=== PATIENT | male | born 1970 | race Caucasian/White ===

== ENCOUNTER 2016-10-10 09:06 | Emergency (ER) | payer OTHER ==
[~2016-10-10] VITALS: Ht 162.6 cm; Wt 85.2 kg
[2016-10-10] MEDS ORDERED: ASPIRIN 81 MG CHEW TABLET PO ONE (09:45)
[2016-10-10 10:01] LABS: BASO % 0.6 % (0.0-1.0); EOS # 0.2 K/mm3 (0.0-0.50); EOS % 4.1 % (0.0-3.0); LARGE UNSTAINED CELL # 0.1 K/mm3 (0.0-0.4); LARGE UNSTAINED CELL % 1.7 % (0.0-4.0); LYMPH # 1.8 K/mm3 (1.5-4.5); LYMPH % 27.5 % (24.0-44.0); MEAN CORPUSCULAR HEMOGLOBIN 29.9 pg (27.0-33.0); MEAN CORPUSCULAR HGB CONC 35.5 g/dl (32.0-36.5); MEAN CORPUSCULAR VOLUME 84.1 fl (80.0-96.0); MONO # 0.3 K/mm3 (0.0-0.8); MONO % 4.9 % (0.0-5.0); NEUTROPHILS # 3.8 K/mm3 (1.8-7.7); NEUTROPHILS % 61.2 % (36.0-66.0); PLATELET COUNT, AUTOMATED 215 k/mm3 (150-450); RED CELL DISTRIBUTION WIDTH 13.2 % (11.5-14.5); WHITE BLOOD COUNT 6.2 K/mm3 (4.0-10.0)
[2016-10-10 10:11] LABS: ALBUMIN 3.9 GM/DL (3.2-5.2); ALKALINE PHOSPHATASE 51 U/L (45-117); ALT/SGPT 60 U/L (12-78); ANION GAP 10 MEQ/L (8-16); AST/SGOT 27 U/L (15-37); BILIRUBIN,DIRECT < 0.1 MG/DL (0.0-0.2); BILIRUBIN,TOTAL 0.6 MG/DL (0.2-1.0); BLOOD UREA NITROGEN 18 MG/DL (7-18); CALCIUM LEVEL 9.5 MG/DL (8.5-10.1); CARBON DIOXIDE LEVEL 28 MEQ/L (21-32); CHLORIDE LEVEL 105 MEQ/L (98-107); CREATININE FOR GFR 1.04 MG/DL (0.70-1.30); GLOMERULAR FILTRATION RATE > 60.0 (>60); GLUCOSE, FASTING 148 MG/DL (70-105); POTASSIUM SERUM 4.1 MEQ/L (3.5-5.1); SODIUM LEVEL 143 MEQ/L (136-145); TOTAL PROTEIN 6.9 GM/DL (6.4-8.2)
--- NOTE | 2016-10-10 10:18 | REP ---
PA and lateral chest: Comparison is 12/26/2011. The lung nuñez are clear. The cardiac size is normal The anibal, mediastinum, and bony thorax are unremarkable. Impression: Negative PA and lateral chest. There is no interval change. Signed by Saeed Gamboa MD 10/10/2016 10:10 A
[2016-10-10 10:42] LABS: ERYTHROCYTE SEDIMENTATION RATE 3 mm/hr (0-15)
[2016-10-10] MEDS ORDERED: KETOROLAC 30 MG/ML VIAL (J1885) IV ONE (11:00)
[2016-10-10] MEDS ORDERED: ASPI1TAB PO (11:54)
[2016-10-10 12:24] VITALS: BP 147/63
--- NOTE | 2016-10-10 19:02 | ECGEPIP ---
Stationary ECG Study [facility] - ED Test Date: 2016-10-10 Pat Name: LEO ARAUJO Department: Room: - Gender: M [employer]: sb : 1970 Requested By: Lesia Burns Order Number: [id number] Reading MD: Lesia Burns Measurements Intervals [place] Rate: 92 P: 44 NE: 148 QRS: 3 QRSD: 107 T: 14 QT: 321 QTc: 397 Interpretive Statements SINUS RHYTHM INCREASED RATE 12/26/11 Electronically Signed On 10-10-2016 19:02:30 EDT by Lesia Burns
== END 2016-10-10 12:24 | disposition home or self-care (01) ==
LOC: M ED 09:06
DX: R07.9 Chest pain, unspecified (principal); M54.9 Dorsalgia, unspecified; Z82.49 Family history of ischemic heart disease and other diseases of the circulatory system; Z79.82 Long term (current) use of aspirin; Z88.2 Allergy status to sulfonamides
CPT/HCPCS: 71020; 80048; 80076; 82550; 82553; 83690; 83880; 84443; 85025; 85379; 85610; 85652; 93005; 93041; 94760; 96374; 99284; J1885

== ENCOUNTER 2017-08-22 19:17 | Emergency (ER) | payer OTHER ==
[2017-08-22] MEDS ORDERED: IBUPROFEN 600 MG TAB PO (22:30)
== END 2017-08-22 22:53 | disposition home or self-care (01) ==
LOC: M ED 19:17
DX: M23.91 Unspecified internal derangement of right knee (principal); Z88.1 Allergy status to other antibiotic agents; Z88.2 Allergy status to sulfonamides
CPT/HCPCS: 73564

== ENCOUNTER → 2017-08-25 | Outpatient (REF) | payer OTHER ==
[2017-08-25 13:51] LABS: BF MONONUCLEAR CELL % 6.9 % (0-0); BF POLYMORPHONUCLEAR CELL % 93.1 % (0-0); RBC BODY FLUID 4 10^3/uL (<2)
[2017-08-25 14:02] LABS: CRYSTALS, BODY FLUID URIC ACID (NONE SEEN); SOURCE, BODY FLUID CRYSTALS RT KNEE
[2017-08-25 14:32] LABS: SOURCE, BODY FLUID RT KNEE; SYNOVIAL FLUID COLOR YELLOW (YELLOW)
[2017-08-25 14:33] LABS: APPEARANCE, BODY FLUID CLOUDY (CLEAR); BF DIFF IF INDICATED? YES (NO); WBC BODY FLUID 36605 /uL (0-10)
== END ==
LOC: M LAB REF 12:47
DX: M25.561 Pain in right knee (principal)
CPT/HCPCS: 89051

== ENCOUNTER 2019-04-22 18:41 | Emergency (ER) | payer OTHER ==
[~2019-04-22] VITALS: Ht 162.6 cm; Wt 82.7 kg
[~2019-04-22 18:41] MED LIST: ASPI81TA26 PO; IBUP-1022 PO
[2019-04-22 18:42] VITALS: BP 167/103
[2019-04-22] MEDS ORDERED: FLUORESCEIN OPHTH 1 MG STRIP OU ONE (21:30)
[2019-04-22] MEDS ORDERED: TETRACAINE 0.5% OPHTH SOLN 4ML OU ONE (21:30)
[2019-04-22] MEDS ORDERED: CIPR0.3S OS (21:48)
[2019-04-22] MEDS ORDERED: CIPROFLOXACIN 0.3% OPHTH SOLN 2.5ML OS ONE (22:00)
== END 2019-04-22 21:58 | disposition home or self-care (01) ==
LOC: M ED 18:41
DX: H10.212 Acute toxic conjunctivitis, left eye (principal); Z88.2 Allergy status to sulfonamides

== ENCOUNTER 2019-12-23 09:49 | Emergency (ER) | payer OTHER ==
[~2019-12-23] VITALS: Ht 162.6 cm; Wt 83.3 kg
[~2019-12-23 09:49] MED LIST changes: +CIPR0.3S6 OS
--- NOTE | 2019-12-23 10:42 | REPVR ---
PROCEDURE INFORMATION: Exam: XR Left Elbow Exam date and time: 12/23/2019 10:23 AM Age: 49 years old Clinical indication: Pain; Elbow; Left; Patient HX: PT unable to straighten arm best images possible TECHNIQUE: Imaging protocol: XR Left elbow. Views: 3 or more views. COMPARISON: No relevant prior studies available. FINDINGS: Bones/joints: The elbow is in a flexed position. Bone mineralization is normal. Bones are intact and the joint spaces are preserved. No acute fracture or dislocation. Dorsal olecranon spurring. Soft tissues: Soft tissues are unremarkable. No elbow joint effusion. IMPRESSION: No acute bony abnormality is identified. Dorsal olecranon spurring. Electronically signed by: Duy Vila On 12/23/2019 10:42:14 AM
[2019-12-23] MEDS ORDERED: IBUPROFEN 800 MG TAB PO ONE (12:00)
[2019-12-23 12:05] VITALS: BP 128/69
== END 2019-12-23 12:06 | disposition home or self-care (01) ==
LOC: M ED 09:49
DX: S46.912A Strain of unspecified muscle, fascia and tendon at shoulder and upper arm level, left arm, initial encounter (principal); X50.0XXA Overexertion from strenuous movement or load, initial encounter; Y92.019 Unspecified place in single-family (private) house as the place of occurrence of the external cause; M25.722 Osteophyte, left elbow; Z88.2 Allergy status to sulfonamides

== ENCOUNTER 2022-04-29 09:39 | Emergency (ER) | payer OTHER ==
[~2022-04-29] VITALS: Ht 162.6 cm; Wt 84.1 kg
[2022-04-29] MEDS ORDERED: ACETAMINOPHEN 500 MG TAB PO ONE (10:40)
[2022-04-29] MEDS ORDERED: NAPR500T6 PO (12:19)
[2022-04-29] MEDS ORDERED: PERC5TAB12 PO (12:19)
[2022-04-29 12:28] VITALS: BP 131/77
== END 2022-04-29 12:43 | disposition home or self-care (01) ==
LOC: M ED 09:39
DX: S83.91XA Sprain of unspecified site of right knee, initial encounter (principal); S76.101A Unspecified injury of right quadriceps muscle, fascia and tendon, initial encounter; M25.461 Effusion, right knee; M17.11 Unilateral primary osteoarthritis, right knee; M11.261 Other chondrocalcinosis, right knee; I10 Essential (primary) hypertension; E78.5 Hyperlipidemia, unspecified; E11.9 Type 2 diabetes mellitus without complications; F10.10 Alcohol abuse, uncomplicated; Z88.2 Allergy status to sulfonamides; Z79.1 Long term (current) use of non-steroidal anti-inflammatories (NSAID); Z79.899 Other long term (current) drug therapy